=== PATIENT | female | born 1955 | race Caucasian/White ===

== ENCOUNTER 2019-08-19 11:20 | Inpatient (IN) ==
[2019-08-19] MEDS ORDERED: ZOFRAN ODT PO ONE (12:19)
[2019-08-19 12:55] LABS: BASO# 0.02 X1000 (0.0-0.2); BASO% 0.2 % (0.0-0.8); HEMATOCRIT 43.5 % (37.0-47.0); HEMOGLOBIN 14.7 g/dL (12.0-16.0); IMM GRAN# 0.33 X1000 (0.0-0.04); IMM GRAN% 2.7 % (0.0-0.5); LYMPH% 3.3 % (20.5-51.1); MCH 28.9 PG (27-31); MCHC 33.8 g/dL (33-37); MCV 85.6 FL (81-99); MONO# 0.53 X1000 (0.11-0.59); MONO% 4.3 % (1.7-9.3); MPV 12.4 FL (7.4-10.4); NEUT# 10.92 X1000 (1.4-6.5); NEUT% 89.5 % (42.2-75.2); PLT 106 X1000 (130-400); RBC 5.08 XMIL (4.2-5.4); RDW 14.9 % (11.5-14.5)
[2019-08-19 13:13] LABS: ALB/GLOB RATIO 0.4; ALBUMIN 1.8 g/dL (3.5-5.0); CALCIUM 7.9 mg/dL (8.8-10.2); CREATININE 2.1 mg/dL (0.5-0.9); POTASSIUM 4.5 mmol/L (3.5-5.1); TOTAL BILIRUBIN 1.08 mg/dL (0.20-1.00); TOTAL PROTEIN 5.9 g/dL (6.3-8.3)
[2019-08-19 13:33] LABS: BANDS 12 % (0-1); LYMPHS 6 % (21-51); SEGS 80 % (42-75)
--- NOTE | 2019-08-19 14:39 | EKG Report ---
Test Performed on : 08/19/2019 12:38:00 PM Test Reason : ED. No order in [place] Blood Pressure : / mmHG Vent. Rate : 088 BPM Atrial Rate : 088 BPM P-R Int : 184 ms QRS Dur : 080 ms QT Int : 338 ms P-R-T Axes : 070 038 036 degrees QTc Int : 408 ms Normal sinus rhythm. Low voltage QRS Septal infarct , age undetermined Inferior injury pattern ACUTE [place] / STEMI Abnormal ECG No previous ECGs available Unconfirmed Result
[2019-08-19] MEDS ORDERED: NS 1,000 ML IV ONE ×2 (16:40→22:00)
[2019-08-19] MEDS ORDERED: ZOFRAN IV ONE (16:40)
--- NOTE | 2019-08-19 16:55 | PROVIDER DOCUMENTATION ---
HPI-General Adult - General Chief Complaint: Weakness Stated Complaint: GENERALIZED ILLNESS Time Seen by Provider: 08/19/19 12:00 Source: patient, family (daughter at bedside) - History of Present Illness -Gen Adult Nature of Presenting Problems: 63 YO F pmh for HTN and NIDDM presents with generalized weakness, lethargy, and increased LE swelling x 4 days. Some associated n/v/diarrhea and chills. pt is lethargic on exam and is currently a poor historian. She is denying any CP or abd pain currently. Daughter is at bedside. pt resides with daughter. Location of Pain/Injury: reports: none Severity: reports: mild Onset/Duration: reports: unsure Timing: reports: still present Context/Activities at Onset: reports: none Modifying Factors: improves with: nothing Associated Symptoms: reports: diarrhea, nausea, vomiting. denies: anxiety, constipation Similar Symptoms Previously?: No Recently seen or treated by another doctor?: No Review of Systems - Adult - REVIEW OF SYSTEMS - ADULT ROS:: limited per condition Constitutional: reports: chills, fever Eyes: reports: no symptoms reported Ears, Nose, Mouth & Throat: reports: no symptoms reported Cardiovascular: denies: chest pain Respiratory: denies: cough, wheezing Gastrointestinal: reports: see HPI, diarrhea, nausea, poor appetite, vomiting Neurological: reports: other (weakness, lethargy) Past History - Adult - PAST MEDICAL HISTORY-ADULT Review of Records: reports: Old Records Reviewed Major Childhood Illnesses: reports: denies history Cardiovascular: reports: HTN Respiratory: reports: denies history Gastrointestinal: reports: denies history Genitourinary: reports: denies history Neurological: reports: denies history Diabetes Type: Type 2 Diabetes controlled by:: PO Meds Other Conditions: reports: other (laser) - PRIOR SURGERIES/PROCEDURES Surgical/Procedure History: reports: cholecystectomy - FAMILY HISTORY Family History: reviewed, not pertinent - SOCIAL HISTORY Smoking: non-smoker Substance Use: denies Physical Exam-General - PHYSICAL EXAM-ADULT Initial Vital Signs Reviewed: Yes - CONSTITUTIONAL General Appearance: obese, lethargic, slow to respond - EYES Eyes: pink conjunctivae - HEAD, EARS, NOSE, MOUTH & THROAT HENMT: normocephalic/atraumatic - NECK Neck: supple - RESPIRATORY Respiratory: no respiratory distress, no accessory muscle use. negative: wheezing - CARDIOVASCULAR Cardiovascular: regular rate, rhythm, no JVD - GASTROINTESTINAL (ABDOMEN) Abdominal Exam: other (protuberant) - MUSCULOSKELETAL Extremity: pedal edema, swelling, tenderness - SKIN Integumentary: warm/dry - NEUROLOGIC Neurologic: no motor/sensory deficits. negative: focal weakness, motor weakness - PSYCHIATRIC Psych/Mental Status: other (slow to respond) Progress - PLAN OF CARE/RESULTS Progress/Plan/Lab Results: Vital Signs - 8 hr 08/19/19 11:34 Temperature 99.3 F Pulse Rate 89 Respiratory Rate 19 Blood Pressure 138/80 O2 Sat by Pulse Oximetry 96 Laboratory Results - last 24 hr 08/19/19 08/19/19 08/19/19 12:34 12:35 12:35 WBC 12.20 H RBC 5.08 Hgb 14.7 Hct 43.5 MCV 85.6 MCH 28.9 MCHC 33.8 RDW Std Deviation 14.9 H Plt Count 106 L MPV 12.4 H Immature Gran % (Auto) 2.7 H Neut % (Auto) 89.5 H Lymph % (Auto) 3.3 L [place] % (Auto) 4.3 Eos % (Auto) 0.0 Baso % (Auto) 0.2 Immature Gran # (Auto) 0.33 H Neut # (Auto) 10.92 H Lymph # (Auto) 0.40 L [place] # (Auto) 0.53 Eos # (Auto) 0.00 Baso # (Auto) 0.02 Segmented Neutrophils 80 H Band Neutrophils 12 H Lymphocytes 6 L Atypical Lymphocytes 2.0 Sodium 130 L Potassium 4.5 Chloride 99 Carbon Dioxide 20 L Anion Gap 11 BUN 47 H Creatinine 2.1 H Estimated GFR/1.73 m2 24 BUN/Creatinine Ratio 22 Glucose 193 H POC Glucose 184 H Calculated Osmolality 278 Calcium 7.9 L Total Bilirubin 1.08 H AST 83 H ALT 52 H Alkaline Phosphatase 140 H Total Protein 5.9 L Albumin 1.8 L Globulin 4.1 Albumin/Globulin Ratio 0.4 Amylase 41 Lipase 22 Orders Category Date Time Status Saline Loc NOW Care 08/19/19 16:51 Ordered CHEST-1 VIEW [RAD] Stat Exams 08/19/19 16:[address] HEAD W/O CONTRAST [CT] Stat Exams 08/19/19 16:51 Ordered FLAT/UPRIGHT ABD/1 VIEW CHEST [RAD] Stat Exams 08/19/19 16:51 Ordered AMYLASE [CHEM] Stat Lab 08/19/19 12:35 Completed CBC WITH DIFF [HEME] Stat Lab 08/19/19 12:35 Completed COMPREHENSIVE METABOLIC PANEL [CHEM] Stat Lab 08/19/19 12:35 Completed LIPASE [CHEM] Stat Lab 08/19/19 12:35 Completed PRO B-NATRIURETIC PEPTIDE Stat Lab 08/19/19 16:52 Ordered TROPONIN T Stat Lab 08/19/19 16:51 Ordered TSH Stat Lab 08/19/19 16:51 Uncollected UA [URINALYSIS W/POSS RFLX CULT] [URINALYSIS] Stat Lab 08/19/19 16:53 Uncollected 0.9% Sodium Chloride Inj [Ns] 1,000 ml Med 08/19/19 16:40 Stop Req IV 999 mls/hr Ondansetron Odt [Zofran Odt] Med 08/19/19 12:19 Discontinued 4 mg PO NOW ONE Ondansetron [Zofran] Med 08/19/19 16:40 Discontinued 4 mg IV NOW ONE EKG [EKG] Stat Ther 08/19/19 12:38 Draft EKG [EKG] Stat Ther 08/19/19 16:51 Ordered Result Diagrams: 08/19/19 12:35 08/19/19 12:35 - REASSESSMENT Reassessment #1 Time Reassessed: 18:15 Status: unchanged (labs reviewed. new onset CHF. will give dose of lasix. hyponatremia, elevated creatinine.) - EKG 1 Time of EKG reading by physician:: 12:48 EKG Read and Signed by:: David Carrillo EKG Interpretation (*Must complete 3 of following elements*): Abnormal Rate: 88 Rhythm: NSR [place]: normal QRS: normal (old septal infarct) [place] Interval: normal Prior EKG Comparison: no prior EKG - XRAY 1 XRAY Study: Chest, Abdomen (FLAT/UPRIGHT ABD/1 VIEW CHEST, CHEST-1 VIEW - 08/19/2019 INDICATION: abd pain TECHNIQUE: Chest x-ray two views, x-ray ab domen two views COMPARISON: 07/04/2018 FINDINGS: Lung volumes are lower. There is cardiomegaly and significant pulmonary vascular congestion. There is worsening infiltrate/edema in the lung bases. No large pleural effusion. There are surgical clips in the right upper quadrant. There is a nonobstructive bowel gas pattern. No free air or abnormal calcifications. IMPRESSION: Low lung volumes. Cardiomegaly and pulmonary vascular congestion. Infiltrate/edema in the lung bases. No acute process in the abdomen. Electronically signed by Randell June 08/19/2019 5:53 PM) - CT/MRI 1 CT Study: Head Impression: Normal - CONSULTS/PCP/HOSPITALIST Notification #1 *Consult/PCP/Hospitalist*: Jennifer admitting for hospitalist Time Discussed: 18:20 Consult Disposition: Will see in ED Departure - Departure Date of Disposition Decision: 08/19/19 Time of Disposition Decision: 18:14 DIAGNOSIS: Hyponatremia, CHF exacerbation, New onset of congestive heart failure Disposition: ADMITTED INPATIENT Certified Medical Emergency: Emergent Condition: Stable - Critical Care Note This patient required my direct & personal management of CC.: No Attestation - Physician/ SAROJ Attestation The physician spent face to face time with patient:: Yes Advanced Practice Provider documentation review:: Supervising physician onsite and consulted in the evaluation and care of this patient. The physician did have a face to face encounter with the patient.
--- NOTE | 2019-08-19 17:55 | Diag Imaging Result Doc PS360 ---
FLAT/UPRIGHT ABD/1 VIEW CHEST, CHEST-1 VIEW - 08/19/2019 INDICATION: abd pain TECHNIQUE: Chest x-ray two views, x-ray abdomen two views COMPARISON: 07/04/2018 FINDINGS: Lung volumes are lower. There is cardiomegaly and significant pulmonary vascular congestion. There is worsening infiltrate/edema in the lung bases. No large pleural effusion. There are surgical clips in the right upper quadrant. There is a nonobstructive bowel gas pattern. No free air or abnormal calcifications. IMPRESSION: Low lung volumes. Cardiomegaly and pulmonary vascular congestion. Infiltrate/edema in the lung bases. No acute process in the abdomen. Electronically signed by Randell June 08/19/2019 5:53 PM
--- NOTE | 2019-08-19 17:57 | Diag Imaging Result Doc PS360 ---
CT HEAD W/O CONTRAST - 08/19/2019 INDICATION: AMS COMPARISON: None FINDINGS: The ventricles and sulci are normal in size and contour. No intracranial mass or hemorrhage. The skull is intact. The sinuses mastoids and middle ears are clear. IMPRESSION: Negative exam. This exam was performed using automated exposure control, adjustment of mA or kV according to patient size, and/or use of iterative reconstruction technique Electronically signed by Randell June 08/19/2019 5:55 PM
[2019-08-19] MEDS ORDERED: LASIX IV ONE ×2 (18:00→22:00)
--- NOTE | 2019-08-19 19:20 | HISTORY AND PHYSICAL ---
HISTORY OF PRESENT ILLNESS: Ms. Amador's daughter was there and her sister. She is seen at the [facility]. PAST MEDICAL HISTORY: 1. Apparently, it sounds like she has chronic venous insufficiency with swelling in her leg. It has been going on for years. 2. Diabetes mellitus type 2. 3. Hypertension. 4. The only surgery has been gallbladder taken out. 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 ALLERGIES: She has no known drug allergies. MEDICATIONS: I am not sure. I do not see a list right now. REVIEW OF SYSTEMS: She denies any fever or chills until she started feeling bad on Monday. Today is Monday, so this last Monday. She felt bad Monday and . On Monday, she noted nausea and vomiting and diarrhea which started and then just persisted. She has not eaten or drank much in the last 3 days. She feels very weak. Denies any blood in the diarrhea. Denies any hematemesis, just general malaise, myalgia. PHYSICAL EXAMINATION: VITAL SIGNS: Temperature 98.7 degrees, pulse 89, respirations 19, blood pressure 138/80. EYES: Pupils are equal and round. LUNGS: Clear in all lung amne. CARDIOVASCULAR: Regular rhythm and rate without murmur or S3. CVP is less than 6 cm. Mucous membranes are dry. ABDOMEN: Soft. SKIN: Warm and dry. EXTREMITIES: She has 2+ pedal edema in both lower extremities from the ankle almost up to her knee, and it is symmetrical. It is pitting edema. LAB: White count 12,200, hematocrit 43, platelet count 106,000. Electrolytes: Sodium 130, potassium 4.5, chloride 99, BUN 47, creatinine 2.1, calcium 7.9. ProBNP is 14,955. TSH is 5.66. Her abdominal x-ray shows low lung volumes, cardiomegaly, pulmonary vascular congestion, infiltrate, edema in the lung bases. No acute process in the abdomen. Chest x-ray: Low lung volumes, cardiomegaly, pulmonary vascular congestion, infiltrate, edema in the lung bases. No acute process in the abdomen. Head CT: Negative exam. ASSESSMENT AND PLAN: 1. It sounds like she had a viral gastroenteritis with diarrhea and nausea. She works in a daycare, so that is statistically a pretty good probability, and she appears on exam to be intravascularly volume depleted, even though her chest x-ray suggests congestion and she has pedal edema. They give a history of this pedal edema for many years, but I think she has chronic venous stasis and probably has poor valves. I think we are going to give her some normal saline and will run it in at 85 mL an hour. We will do that for 8 hours and then cut it down to keep vein open. We will give her clear liquids. We will give her Tylenol for fever and for aches and pains, and we will follow her renal function. We will check a basic metabolic profile again tomorrow as well as a magnesium. Note that her creatinine was 2.1. 2. Acute kidney injury. I suspect this is prerenal. 3. She does have an elevated proBNP. Chest x-ray does suggest pulmonary venous congestion, but I think we are going to have to define her left ventricular function, so we will get an echocardiogram with Doppler and look at the left ventricle. We will check her troponin and CK in the morning. Check another EKG in the morning. 4. She apparently had a history of nephrotic syndrome in the past. Note that her albumin is 1.8. I do not know if this is from poor protein intake. We will look at the urine and check and see if she is spilling protein, and we may need to get a 24 hour for protein and creatinine. We are going to go ahead and get Dr. Jaimes on the case, because apparently I think she had seen him in the past when she had nephrotic syndrome in the past, by their report. At this point, we are going to give her a little bit of fluids. 5. She has mild elevation of AST and ALT. It is not very specific, but we will follow up on her liver enzymes. Tomorrow, we will check another Chem 22. I think we ought to check phosphorus and calcium. We will check her T4, TSH, B12, and folate. 6. Diabetes mellitus type 2. We will check hemoglobin A1c in the morning. We will put her on patterned sugars and see if she will get a little improvement. cc: Hua Teradwell MD
[2019-08-19] MEDS ORDERED: TYLENOL PO PRN (20:43)
[2019-08-19] MEDS ORDERED: ZOFRAN IV PRN (20:43)
[2019-08-19] MEDS ORDERED: NS 1,000 ML IV SCH (20:43)
[2019-08-19 20:49] LABS: URINE SOURCE CATH
[2019-08-19 21:03] LABS: BILIRUBIN URINE SMALL (NEGATIVE); BLOOD URINE MODERATE (NEGATIVE); COLOR YELLOW; GLUCOSE URINE 300 mg/dL (NEGATIVE); KETONE URINE NEGATIVE (NEGATIVE); LEUKOCYTES URINE NEGATIVE (NEGATIVE); NITRITE URINE NEGATIVE (NEGATIVE); PROTEIN URINE 600 mg/dL (NEGATIVE); SP GRAVITY URINE 1.018; TURBIDITY URINE HAZY (CLEAR); UROBILINOGEN URINE 3 mg/dL (NORMAL)
[2019-08-19 21:07] LABS: UR EPITHELIAL CELLS >10 /HPF (<10); URINE BACTERIA NEGATIVE /HPF; URINE WBC <10 /HPF (<10)
[2019-08-19 21:15] LABS: URINE CASTS GRANULAR PRESENT; URINE CRYSTALS NONE SEEN; URINE SMALL ROUND CELLS NONE SEEN; URINE YEAST NONE SEEN
[2019-08-19] MEDS: HUMALOG SUBQ SCH (22:22)
[2019-08-20 05:27] LABS: HEMOGLOBIN A1C 6.8 % (4.8-6.0)
[2019-08-20 05:49] LABS: BASO# 0.02 X1000 (0.0-0.2); BASO% 0.1 % (0.0-0.8); HEMATOCRIT 38.7 % (37.0-47.0); HEMOGLOBIN 12.8 g/dL (12.0-16.0); IMM GRAN# 0.47 X1000 (0.0-0.04); IMM GRAN% 3.2 % (0.0-0.5); LYMPH# 0.71 X1000 (1.2-3.4); LYMPH% 4.8 % (20.5-51.1); MCH 28.6 PG (27-31); MCHC 33.1 g/dL (33-37); MCV 86.6 FL (81-99); MONO# 1.35 X1000 (0.11-0.59); MONO% 9.1 % (1.7-9.3); NEUT# 12.34 X1000 (1.4-6.5); NEUT% 82.8 % (42.2-75.2); PLT 92 X1000 (130-400); RBC 4.47 XMIL (4.2-5.4); RDW 14.8 % (11.5-14.5); WBC 14.89 X1000 (4.8-10.8)
[2019-08-20] MEDS: HUMALOG SUBQ SCH (06:49)
[2019-08-20 07:02] LABS: T4 6.02 ug/dL (4.60-12.00)
--- NOTE | 2019-08-20 07:11 | Diag Imaging Result Doc PS360 ---
EXAM: CHEST-PORTABLE 08/20/2019 HISTORY: chf TECHNIQUE: AP portable at 0622 COMMENT: There is cardiomegaly and increased pulmonary vascularity. The inspiration is less optimal than on 08/19/2019, otherwise are has been no significant change. There is mild interstitial pulmonary edema. IMPRESSION: Cardiomegaly with mild pulmonary edema. Electronically signed by Aly Cabrera 08/20/2019 7:09 AM
--- NOTE | 2019-08-20 07:13 | EKG Report ---
Test Performed on : 08/20/2019 06:51:58 AM Test Reason : Heart Failure Admission Blood Pressure : / mmHG Vent. Rate : 082 BPM Atrial Rate : 082 BPM P-R Int : 182 ms QRS Dur : 088 ms QT Int : 370 ms P-R-T Axes : 070 007 022 degrees QTc Int : 432 ms Normal sinus rhythm. with sinus arrhythmia. Low voltage QRS ST elevation, consider inferolateral injury or acute infarct ACUTE [place] / STEMI Abnormal ECG When compared with ECG of 19-AUG-2019 12:38, (Unconfirmed) ST more elevated in Lateral leads Confirmed by Galo ASCENCIO, Elias Doll ([id number]) on 08/20/2019 11:59:55 AM
[2019-08-20 07:26] LABS: BANDS 24 % (0-1); LYMPHS 2 % (21-51); MONO 6 % (1-9); POIKILOCYTOSIS 1+; SEGS 68 % (42-75)
[2019-08-20 07:36] VITALS: BP 140/68
[2019-08-20] MEDS ORDERED: ASPIRIN PO STA (07:38)
[2019-08-20] MEDS ORDERED: HEPARIN IV ONE (07:50)
[2019-08-20] MEDS ORDERED: ASPIRIN PR ONE (08:30)
[2019-08-20 08:37] LABS: ALBUMIN 1.4 g/dL (3.5-5.0); CALCIUM 7.5 mg/dL (8.8-10.2); CREATININE 2.5 mg/dL (0.5-0.9); PHOSPHORUS 4.3 mg/dL (2.7-4.5); POTASSIUM 4.7 mmol/L (3.5-5.1)
[2019-08-20] MEDS ORDERED: ASPIRIN EC PO SCH (09:00)
[2019-08-20] MEDS ORDERED: ALBUMIN 25% IV SCH (09:00)
[2019-08-20 09:23] LABS: UR CREAT RANDOM 190.2 mg/dL (11-20); UR SODIUM < 10 mmoll
[2019-08-20 09:24] LABS: UR PROT RANDOM > 600.0 mg/dL
--- NOTE | 2019-08-20 22:05 | NEPHROLOGY CONSULTATION ---
DATE: 08/20/2019 REASON FOR ADMISSION: Weakness with increased swelling. REASON FOR CONSULT: Acute kidney injury on CKD. CONSULTING PHYSICIAN: Dr. Treadwell. TIME SEEN: 7:10. SUBJECTIVE: Ms. Amador is a 63-year-old white female who has previously been seen in our office by Dr. Parson for chronic kidney disease stage IIIB. It is noted that the patient was documented as having proteinuria, was to be taking Lasix with a limited fluid intake and low salt restriction. It was felt that at that time in our office, she had heavy proteinuria secondary to her diabetes. Unfortunately, on 08/19/2019 the family had noted that she had generalized weakness with lethargy with lower extremity swelling x4 days, worsening, now associated with nausea, vomiting and diarrhea. In this context, her family at the bedside stated that she was taking her home medications which also include metformin, lisinopril and hydrochlorothiazide. Upon evaluation, the patient is very lethargic. She does open her eyes to verbal stimuli but drifts off. Family member stated that she was awake, talking limited amount the night before, though she has been very lethargic this morning and hard to arouse. PAST MEDICAL HISTORY: Family states that her past medical history is chronic kidney disease stage IIIB, proteinuria, diabetes mellitus type 2 noninsulin dependent, hypertension, chronic venous insufficiency with chronic lower extremity swelling. PREVIOUS SURGICAL HISTORY: Has been listed as gallbladder on her outpatient and H P. FAMILY HISTORY: Noncontributory. SOCIAL HISTORY: Is documented that she denies tobacco, alcohol or illicit drug use. She also works as a daycare employee. ALLERGIES: Listed as no known drug allergies. HOME MEDICATIONS: Have yet to be reconciled when seen this a.m. REVIEW OF SYSTEMS: Unable to obtain per patient in her lethargic state. Family members at the bedside waiting for her daughter to return. HER CURRENT VITAL SIGNS: Temperature 99.3 degrees, blood pressure 146/61, heart rate is 86, respirations 18. She is on 2 L nasal cannula. Last recorded saturation 97%. She has had 600 in, 180 mL out to Paulino catheter. LABS: Sodium 128, potassium 4.7, chloride 97, CO2 19, BUN 57, creatinine 2.5 up from 2.1, glucose 198. Her anion gap is 12, calcium 7.5, albumin 1.4. White count 14.89, hemoglobin 12.8, hematocrit 38.7, with a platelet count of 92,000. The patient was treated with 1 IV fluid bolus of normal saline 1 L. EKG reading upon admission showed normal sinus rhythm with an old septal infarct. There were no cultures obtained. We will order blood cultures and urine cultures. X-RAYS: Chest and abdomen shows lung volumes are low, cardiomegaly significant with pulmonary vascular congestion, worsening infiltrate edema in the lung bases. No pleural effusions. No acute process in the abdomen. CT of the head was negative for acute changes. PHYSICAL EXAMINATION: General: This is a 63-year-old white female. She is difficult to arouse. She is lethargic. We have evaluated and it appears she has only gotten Tylenol during the night. HEENT: Normocephalic, atraumatic. Conjunctivae are pale pink. She has constricted pupils, sluggish to react. Neck: Supple. Trachea midline. No evidence of JVD due to body habitus. Cardiovascular: She is regular rate and rhythm. She is slightly tachycardic at times during auscultation. Lungs: The patient's lungs have poor inspiratory effort. Clear anteriorly. Remains on O2. Abdomen: Large, round. Hypo bowel sounds. Genitourinary: Not inspected. Paulino catheter is in place with diminished urine out. Extremities: Have 3+ solid edema, positive pitting. Some chronic venous stasis present to lower extremities. Neurological: As mentioned above. ASSESSMENT AND PLAN: 1. Acute kidney injury on chronic kidney disease stage IIIB 4. In appearance, this appears to be prerenal. The patient has given been given 1 L of normal saline fluid bolus. We will check urine electrolytes, evaluate renal ultrasound, avoid nephrotoxic medications. Her metformin, lisinopril and hydrochlorothiazide have currently been held. 2. Electrolytes. These are acceptable. 3. Acid-base balance. This may be indicative secondary to her congestive heart failure. She has received Lasix x1. 4. Anemia. This is close to target. 5. Altered mental status, followed by the primary care team. I would like to thank you for allowing us to follow with this patient. Dictated by CHOLO Galaviz for Jones Jaimes MD Face to face encounter, data reviewed, discussed with Nereida Rodriguez on08/20/19. I agree with the above assessment and plan of care. cc: CHOLO Galaviz MD MTDD
--- NOTE | 2019-08-21 06:08 | DISCHARGE SUMMARY ---
ADMISSION DATE: 08/19/2019 DISCHARGE DATE: 08/20/2019 DISCHARGE DIAGNOSES: 1. Possible acute coronary syndrome/ST elevation myocardial infarction. 2. Acute on chronic kidney disease. 3. Anasarca. 4. Hypoalbuminemia with a questionable history of nephrotic syndrome. 5. Vomiting and diarrhea. 6. Elevated liver function tests. 7. Type 2 diabetes with hemoglobin A1c of 6.8. 8. Hypertension. 9. Metabolic encephalopathy that apparently started 5 days ago. PROCEDURE PERFORMED: 1. Abdominal x-ray dated 08/19/2019. Impression: Low lung volumes, cardiomegaly, and pulmonary vascular congestion, infiltrate/edema in the lung bases. No acute process in the abdomen. 2. Chest x-ray dated 08/19/2019. Impression: Low lung volumes, cardiomegaly, and pulmonary vascular congestion/infiltrate/edema in the lung bases. 3. Head CT scan dated 08/19/2019. Impression: Negative exam. 4. Chest x-ray dated 08/20/2019. Impression: Cardiomegaly with mild pulmonary edema. HOSPITAL COURSE: A 63-year-old female. At this moment, she seems to be really somnolent/lethargic. Her daughter is at the bedside, and they live together. As per the daughter, she has a medical history of kidney dysfunction with a problem with her proteins. She believes she produces too much protein. As per the daughter, she started having some runny nose and some kind of vital symptoms last , 5 to 6 days ago. Then, she started having nausea and vomiting, and she has been lethargic apparently for a few days. As per the daughter, no other medical history but diabetes and hypertension, but not cardiac issues. No liver problems, alcohol or tobacco use. She works with [employer], and they thought that this was related to a viral disease. She presented yesterday to the emergency department where a chest x-ray, abdominal x-ray, and head CT scans were done. Chest x-ray showed low lung volumes, cardiomegaly, and pulmonary vascular congestion with infiltrate and/or edema in the lung bases. The abdomen looks fine as well as the CT scan of the head. We also had an initial EKG that showed some nonspecific ST changes, but she has never been complaining of chest pain. Actually, her troponin's have been negative since admission x3, but they were increasing slightly from 0.03 to 0.05 and then 0.06, but in a patient with acute kidney injury on chronic kidney disease. She was found to be hyponatremic, acute on chronic kidney disease. Her glucose level was elevated at 193, but the hemoglobin A1c was 6.8, elevated LFT's, negative troponin's x3, [place] [address]. TSH slightly elevated, but the T4 was within normal limits. Likely, this patient has an ATN. She received some fluids, but also she received some Lasix because of her fluid overload. Nephrology Department evaluated this patient, and they suggested to use albumin because her albumin level was really low at 1.4 today. Cardiology Department evaluated the images, and they suggested to transfer immediately this patient to [facility] for evaluation and possible cardiac cath. There is a possibility of ST elevation myocardial infarction. I checked the EKG and for me it looks like this patient also can be having a pericarditis. At the moment of my physical exam, the daughter was at the bedside. The patient was lethargic. She was not able to follow commands or answer any of my questions. She was edematous, and had anasarca. As per the daughter, this is not new. She believed this was related to some protein problems. At the end of my examination, she was receiving a dose of aspirin and heparin. Also, the ambulance arrived during this time. Basically, they are taking this patient right now to [facility]. I will not delay the transfer. It looks like she will go to the [facility] Unit at [place], their help is appreciated. I explained to the daughter the whole situation, and she seems to understand. PHYSICAL EXAMINATION: Vital signs: Temperature 98.5 degrees, pulse 83, respiratory rate 18, blood pressure 140/68, and oxygen saturation 96% on 2 L of nasal cannula. HEENT: Head normocephalic. No trauma. PERRLA. Neck: Supple. I cannot see JVD because of her neck size. Central trachea. Chest: Decreased breath sounds globally mostly at the bases. Abdomen: Soft. Nontender and nondistended. Protuberant. Abdominal wall edema. Extremities: 3+ pitting edema. No clubbing. No cyanosis. Neurological: The patient is lethargic. She is not following commands or answering any of my questions. She tries to open her eyes with some voice stimulation. LABORATORY: WBC 14.8, hemoglobin 12.8, hematocrit 38.7, and platelets 92,000. Sodium 128, potassium 4.7, chloride 97, bicarbonate 19, BUN 57, creatinine 2.5, glucose 198, calcium 7.5, phosphorus 4.3, magnesium 1.9, and albumin 1.4. ASSESSMENT AND PLAN: The patient has been transferred to [facility]. The ambulance team arrived during my examination. She is getting aspirin and heparin, and hopefully she will be transferred right now. cc: Michael Trevino MD
[2019-08-21 12:27] LABS: HEPATITIS PROFILE ACUTE SEE COMMENTS
== END 2019-08-20 09:04 | disposition short-term general hospital (02) | DRG 280 ==
LOC: ED 11:20 → SUATTDRO 20:07 → 3N 20:07
PROVIDERS: ATTEND Internal Medicine